=== PATIENT | male | born 1980 | race Caucasian/White ===

== ENCOUNTER 2019-01-09 02:13 | Emergency (ER) | payer SELFPAY ==
[~2019-01-09] VITALS: Ht 172.7 cm; Wt 72.6 kg
--- NOTE | 2019-01-09 02:19 | NUR ---
URINE COLLECTED AND SENT TO LAB
[2019-01-09 02:23] VITALS: BP 133/84
--- NOTE | 2019-01-09 03:02 | NUR ---
PT EVALUATED BY CRISIS TEAM TONA. PT DENIES SI HI. PT AMBULATED WITH STEADY GAIT NOTED. PT IS AAOX4. NO S/S OF ACUTE DISTRESS NOTED
[2019-01-09 03:05] LABS: APPEARANCE,URINE CLEAR (CLEAR); BILIRUBIN,URINE NEGATIVE (NEGATIVE); BLOOD, URINE NEGATIVE Ery/uL (NEGATIVE); COLOR,URINE YELLOW (YELLOW); KETONES,URINE NEGATIVE (NEGATIVE); LEUKOCYTE ESTERASE ,URINE NEGATIVE (NEGATIVE); NITRITE, URINE NEGATIVE (NEGATIVE); PROTEIN,URINE NEGATIVE (NEGATIVE); UGLUCOSE NEGATIVE (NEGATIVE); UROBILINOGEN,URINE 0.2 EU/dL (0.2)
--- NOTE | 2019-01-09 03:07 | NUR ---
CQ DEVELOPER AT BEDSIDE FOR BLOOD DRAW, PT REFUSED. AWARE
[2019-01-09] MEDS: BACITRACIN ZINC OINT PACKET 1 EA PACKET TP ONE (03:14)
--- NOTE | 2019-01-09 03:15 | NUR ---
Patient does not wish to proceed with medical care recommended by Dr. COPE. Patient given information related to possible complications, up to and including , which could occur as a result of leaving the hospital at this time. Patient verbalizes understanding of risks involved due to leaving against medical advice. Patient has signed AMA form. PT AAOX4. PT DENIES SI, HI, OR HALLUCINATIONS AT THIS TIME. PT AMBULATORY WITH STEADY GAIT.
== END 2019-01-09 03:17 | disposition left against medical advice (07) ==
LOC: ER 02:15
DX: S00.81XA Abrasion of other part of head, initial encounter (principal); R53.81 Other malaise; F17.200 Nicotine dependence, unspecified, uncomplicated; X58.XXXA Exposure to other specified factors, initial encounter; Y93.89 Activity, other specified; Y92.89 Other specified places as the place of occurrence of the external cause; Y99.8 Other external cause status
CPT/HCPCS: 80305; 81001; 99283; A6402; 81000-TC